=== PATIENT | male | born 1950 | race Caucasian/White ===

== ENCOUNTER 2019-04-19 10:30 | Outpatient (CLI) | payer OTHER ==
[~2019-04-19] VITALS: Ht 180.3 cm; Wt 146.5 kg
[2019-04-19] MEDS ORDERED: PSYL0.5211 PO (10:47)
[2019-04-19] MEDS ORDERED: ATOR10TA66 PO (10:47)
[2019-04-19] MEDS ORDERED: CHOL500044 PO (10:47)
[2019-04-19] MEDS ORDERED: MULT-1056 PO (10:47)
[2019-04-19] MEDS ORDERED: AMLO10TA7 PO (10:47)
[2019-04-19] MEDS ORDERED: OMG1KC PO (10:47)
[2019-04-19] MEDS ORDERED: ASPI-586 PO (10:47)
[2019-04-19] MEDS ORDERED: POTA-51 PO (10:47)
[2019-04-19] MEDS ORDERED: FURO-124 PO (10:47)
[2019-04-19] MEDS ORDERED: FLUT9.9S NS (10:47)
[2019-04-19] MEDS ORDERED: LOSA100T57 PO (10:47)
[2019-04-19] MEDS ORDERED: METF-397 PO (10:47)
== END 2019-04-19 10:51 | disposition home or self-care (01) ==
LOC: PREOP 10:30
PROVIDERS: ATTEND Surgery
DX: Z01.818 Encounter for other preprocedural examination (principal)

== ENCOUNTER 2019-04-21 08:54 | Day surgery (SDC) | payer OTHER ==
[2019-04-21] VITALS (11 sets, daily range): BP systolic 102–161; BP diastolic 59–91
[~2019-04-21] VITALS: Ht 180.3 cm; Wt 146.5 kg
[~2019-04-21 08:54] MED LIST: AMLO10TA7 PO; ASPI-586 PO; ATOR10TA66 PO; CHOL500044 PO; FLUT9.9S NS; FURO-124 PO; LOSA100T57 PO; METF-397 PO; MULT-1056 PO; NS IV 500 ML 500 ML ONE; OMG1KC PO; POTA-51 PO; PSYL0.5211 PO
[2019-04-21] MEDS ORDERED: NS IV 500 ML 500 ML IV PRN (09:07)
[2019-04-21] MEDS ORDERED: MIDAZOLAM 2 MG/2 ML (VERSED) VIAL IVP ONE (09:15)
[2019-04-21] MEDS ORDERED: fentaNYL INJECTION 100 MCG/2 ML AMP IVP ONE (09:15)
[2019-04-21] MEDS ORDERED: LIDOCAINE JELLY 2% 6 ML SYRINGE MM PRN (09:15)
[2019-04-21] MEDS ORDERED: MIDAZOLAM 2 MG/2 ML (VERSED) VIAL ONE ×2 (10:12)
[2019-04-21] MEDS ORDERED: fentaNYL INJECTION 100 MCG/2 ML AMP ONE (10:12)
[2019-04-21] MEDS ORDERED: LIDOCAINE JELLY 2% 6 ML SYRINGE ONE (10:13)
--- NOTE | 2019-04-21 10:19 | Progress Note-Pre Operative ---
Pre-Operative Progress Note H&P Reviewed The H&P was reviewed, patient examined and no changes noted. Date Seen by Provider: Apr 21, 2019 Time Seen by Provider: 09:45 Date H&P Reviewed: Apr 21, 2019 Time H&P Reviewed: :45 Pre-Operative Diagnosis: screening colo, family hx colon ca NEIL NUNEZ MD Apr 21, 2019 10:19
--- NOTE | 2019-04-21 10:19 | Conscious Sedation/ASA ---
Conscious Sedation Pre-Proced Time 09:45 ASA Score 2 For ASA 3 and 4: Consider anesthesia and medical clearance. Also, for patients with a history of failed moderate sedation consider anesthesia. Airway Lungs Heart ASA score ASA 1: a normal healthy patient ASA 2: a patient with a mild systemic disease (mid diabetes, controlled hypertension, obesity ASA 3: a patient with a severe systemic disease that limits activity (angina, COPD, prior Myocardial infarction) ASA 4: a patient with an incapacitating disease that is a constant threat to life (CHF, renal failure) ASA 5: a moribund patient not expected to survive 24 hrs. (ruptured aneurysm) ASA 6: a declared brain- patient whose organs are being harvested. For emergent operations, add the letter E after the classification Mallampati Classification Grade 2 Sedation Plan Analgesia, Amnesia, Plan communicated to team members, Discussed options with patient/fam, Discussed risks with patient/fam The patient is an appropriate candidate to undergo the planned procedure, sedation, and anesthesia. The patient immediately re-assessed prior to indication. NEIL NUNEZ MD Apr 21, 2019 10:19
--- NOTE | 2019-04-21 10:21 | Discharge Inst-Surgical ---
D/C Lap Instructions-ENRIQUE Follow Up Activity as tolerated High Fiber Diet 25g or more per day Avoid Alcohol, Caffeine, Spicy [facility] and Acid foods. Drink 64 fluid oz or more of fluids per day. Symptoms to Report: Fever over 101 degree F, Nausea/Vomiting If any problems/questions: Contact your physician or go to Emergency Room NEIL NUNEZ MD Apr 21, 2019 10:21
[2019-04-21] MEDS ORDERED: morphine INJ 10 MG/ML 1ML (SYR OR VIAL) IVP PRN ×2 (10:30)
[2019-04-21] MEDS ORDERED: ONDANSETRON 4 MG/2 ML (SDV) Z0FRAN IVP PRN (10:30)
[2019-04-21] MEDS ORDERED: HYDROcodone/APAP 5 MG/325 MG (LORTAB) TAB PO PRN (10:30)
[2019-04-21] MEDS ORDERED: ACETAMINOPHEN 325 MG TABLET PO PRN (10:30)
--- NOTE | 2019-04-21 10:59 | Progress Note-Post Operative ---
Post-Operative Progess Note Surgeon (s)/Pigs Feet Cleaner (s) Surgeon NEIL NUNEZ MD Pigs Feet Cleaner: none Pre-Operative Diagnosis screening colo, family hx colon ca Post-Operative Diagnosis mild chronic stage 2 ext and int hemorrhoids. Procedure & Operative Findings Date of Procedure 04/21/19 Procedure Performed/Findings Colonoscopy Anesthesia Type cs Estimated Blood Loss Estimated blood loss (mL): minimal Specimens/Packing Specimens Removed none NEIL NUNEZ MD Apr 21, 2019 10:59
--- NOTE | 2019-04-21 13:22 | OPERATIVE REPORT ---
DATE OF SERVICE: 04/21/2019 ATTENDING CABINET FINISHER: [facility] in [place], [place]. PREOPERATIVE DIAGNOSIS: Screening colonoscopy with family history of colon cancer. POSTOPERATIVE DIAGNOSES: Mild chronic stage II external and internal hemorrhoids, mild sigmoid diverticulosis. PROCEDURE: Colonoscopy. SURGEON: Neil Nunez MD ANESTHESIA: Conscious sedation. ESTIMATED BLOOD LOSS: Minimal. FINDINGS: Mild chronic stage II external and internal hemorrhoids, mild sigmoid diverticulosis, no polyps nor any neoplasms identified. DISPOSITION: The patient tolerated the procedure well. INDICATIONS: The patient is a 68-year-old male in need of a screening colonoscopy. His last colonoscopy was 3 years ago and at that time, a polyp was identified, biopsied and found to be benign. He does have a first degree relative with history of colon cancer with his brother being diagnosed with the disease at age 40. He is otherwise doing well, does not report any major issues with diarrhea nor constipation as well as no red blood per rectum nor any dark tarry stools. DESCRIPTION OF PROCEDURE: The patient was brought to the endoscopy suite, laid in the left lateral decubitus position. After adequate IV pain and sedative medications and conscious sedation anesthesia, a digital rectal examination was performed. Mild chronic stage II external and internal hemorrhoids were identified, which were not actively edematous nor inflamed and no bleeding. Normal sphincter tone was felt and there were no palpable masses. Prostate gland was palpable and appeared normal. The endoscope was then intubated into the anus and rectum gently insufflated. The endoscope was then advanced to the valves of Rivera rectum with no polyps or any neoplasms identified. Through the sigmoid colon, mild sigmoid diverticulosis identified. The endoscope was then advanced to the remainder of the descending, transverse and ascending colon to the cecum. These segments were normal. There were no polyps or any neoplasms identified throughout the colon or rectum. The endoscope was then slowly withdrawn while taking a second look and suctioning of residual air with no additional findings. The patient tolerated the procedure well. We will recommend continued medical management with a high fiber diet with 30 grams of fiber daily as well as significant amounts of water to promote soft stools on a daily basis. Due to his first-degree family history, we will recommend a followup colonoscopy in 5 years. Job ID: [id number] DocumentID: [id number] Dictated Date: 04/21/2019 10:49:46 Director Of Photography Date: 04/21/2019 13:22:13 Dictated By: NEIL NUNEZ MD
== END 2019-04-21 11:45 | disposition home or self-care (01) ==
LOC: ENDO 08:54
PROVIDERS: ATTEND Surgery
DX: Z12.11 Encounter for screening for malignant neoplasm of colon (principal); K64.1 Second degree hemorrhoids; K64.8 Other hemorrhoids; K57.30 Diverticulosis of large intestine without perforation or abscess without bleeding; E78.00 Pure hypercholesterolemia, unspecified; E11.9 Type 2 diabetes mellitus without complications; I10 Essential (primary) hypertension; Z86.010 Personal history of colon polyps; Z88.1 Allergy status to other antibiotic agents; Z88.0 Allergy status to penicillin; Z90.49 Acquired absence of other specified parts of digestive tract; Z90.89 Acquired absence of other organs; Z79.84 Long term (current) use of oral hypoglycemic drugs; Z79.899 Other long term (current) drug therapy; Z80.0 Family history of malignant neoplasm of digestive organs